=== PATIENT | male | born 1935 | race Caucasian/White ===

== ENCOUNTER 2023-02-02 18:29 | Inpatient (IN) | payer MEDICARE, MEDICAID ==
[~2023-02-02] VITALS: Ht 177.8 cm; Wt 81.8 kg
[2023-02-02] MEDS ORDERED: acetaminophen 325mg tablet PO ONE (18:45)
[2023-02-02] MEDS ORDERED: ibuprofen 200mg tablet PO ONE (19:15)
[2023-02-02] MEDS ORDERED: normal saline 1000ml 1,000 ML IV ONE (22:45)
[2023-02-02 23:41] LABS: BASOPHILS % (AUTO) 0.4 % (0-1); EOSINOPHILS % (AUTO) 0.2 % (0-6); HEMATOCRIT 39.2 % (42.0-52.0); LYMPHOCYTES # (AUTO) 0.7 X10'3 (1.1-4.8); LYMPHOCYTES % (AUTO) 9.1 % (21-51); MEAN CORPUSCULAR HEMOGLOBIN 30.8 PG (27.0-31.0); MEAN CORPUSCULAR HGB CONC 33.1 g/dL (33.0-36.5); MEAN PLATELET VOLUME 9.5 FL (7.4-10.4); MONOCYTES # (AUTO) 1.4 X10'3 (0-0.9); NEUTROPHILS # (AUTO) 5.5 X10'3 (1.8-7.7); NEUTROPHILS % (AUTO) 72.3 % (42-75); PLATELET COUNT 144 X10'3 (140-440); RED BLOOD COUNT 4.22 X10'6 (4.70-6.10); RED CELL DISTRIBUTION WIDTH 17.6 % (11.5-14.5); WHITE BLOOD COUNT 7.6 X10'3 (4.5-11.0)
[2023-02-02 23:52] LABS: ALANINE AMINOTRANSFERASE 25 U/L (12-78); ALBUMIN 3.4 G/DL (3.4-5.0); ALBUMIN/GLOBULIN RATIO 0.9 (1.1-1.5); ALKALINE PHOSPHATASE 84 IU/L (46-116); ANION GAP 10 (8-16); ASPARTATE AMINO TRANSFERASE 25 U/L (10-37); BILIRUBIN,TOTAL 0.6 MG/DL (0.1-1.0); BLOOD UREA NITROGEN 23 MG/DL (7-18); BUN/CREATININE RATIO 15.1 (10.0-20.0); CHLORIDE 103 MMOL/L (99-107); CREATININE 1.52 MG/DL (0.60-1.10); GLUCOSE 143 MG/DL (70-104); POTASSIUM 3.9 MMOL/L (3.5-5.1); SODIUM 138 MMOL/L (135-145); TOTAL CARBON DIOXIDE 24.7 MMOL/L (24-32); TOTAL PROTEIN 7.4 G/DL (6.4-8.2); eCRCL 37 ML/MIN; eGFR 44 ML/MIN
[2023-02-02 23:54] LABS: MAGNESIUM 1.9 MG/DL (1.5-2.4)
[2023-02-03] VITALS (7 sets, daily range): BP systolic 132–153; BP diastolic 53–61; PULSE 57–77; RESP 16–20; TEMP 97.7–98.3; O2SAT 94–98
[2023-02-03 00:30] LABS: ANISOCYTOSIS 1+; PLATELET ESTIMATE NORMAL; TOTAL CELLS COUNTED 100
[2023-02-03 00:34] LABS: ELLIPTOCYTES 1+; POIKILOCYTOSIS FEW
[2023-02-03 01:14] LABS: PRO BRAIN NATRIURETIC PEPTIDE 1052 PG/ML (0-450)
[2023-02-03] MEDS ORDERED: potassium Cl 40MEQ/1/2NS 520ml 520 ML IV PRN (01:50)
[2023-02-03] MEDS ORDERED: mag hydrox/Alum hydrox/simeth 30ml oral suspension PO PRN (01:50)
[2023-02-03] MEDS ORDERED: acetaminophen 325mg tablet PO PRN (01:50)
[2023-02-03] MEDS ORDERED: magnesium hydroxide 30ml (MOM) UD suspension PO PRN (01:50)
[2023-02-03] MEDS ORDERED: magnesium 2GM in 50ml NS 50 ML IV PRN (01:50)
[2023-02-03] MEDS ORDERED: potassium Cl 20 mEq SR tablet PO PRN ×2 (01:50)
[2023-02-03] MEDS ORDERED: magnesium Cl slow-release 64mg tablet PO PRN (01:50)
[2023-02-03] MEDS ORDERED: magnesium 4gm in 100ml NS 100 ML IV PRN (01:50)
[2023-02-03] MEDS ORDERED: ondansetron/PF 4mg/2ml inj IV PRN (01:50)
[2023-02-03] MEDS ORDERED: ipratropium/albuterol 3ml nebule NEB PRN (01:50)
[2023-02-03] MEDS ORDERED: HYDROcodone/acetaminophen 10/325mg tab PO PRN (01:50)
[2023-02-03] MEDS ORDERED: HYDROcodone/acetaminophen 5mg/325mg tablet PO PRN (01:50)
[2023-02-03] MEDS ORDERED: REMDESIVIR INJ 200 MG in normal saline 100ml IV soln 100 ML IV ONE (01:55)
[2023-02-03] MEDS ORDERED: fentaNYL/PF 50MCG/1 ML 2ML syringe IV ONE (04:55)
[2023-02-03 06:59] LABS: UA COLLECTION TYPE CLN CATCH MIDSTREAM
[2023-02-03 07:00] LABS: COLOR,URINE YELLOW (Yellow)
[2023-02-03 07:01] LABS: BILIRUBIN,URINE NEGATIVE (Neg); CLARITY,URINE TURBID (Clear); GLUCOSE, URINE NEGATIVE (Neg); KETONES,URINE NEGATIVE (Neg); NITRITES, URINE POSITIVE (Neg); OCCULT BLOOD,URINE MODERATE (Neg); PROTEIN,URINE 100 mg/dl (Neg)
[2023-02-03 07:02] LABS: BACTERIA,URINE 2+ /HPF (Neg); LEUKOCYTE ESTERASE ,URINE LARGE (Neg); MUCUS STRANDS MODERATE /LPF (Neg); SQUAMOUS EPITHELIAL CELL,UR MODERATE /LPF (FEW); UROBILINOGEN,URINE 0.2 E.U/dL (0.2-1.0); WBC CLUMPS,URINE MODERATE /HPF (NEGATIVE); WBC,URINE TNTC /HPF (0-4)
[2023-02-03] MEDS: K and/or MAG REPLACEMENT MC SCH ×2 (07:30→20:00)
[2023-02-03] MEDS: azithromycin/NS 500mg/250ml 250 ML IV SCH (07:42)
[2023-02-03] MEDS: methylPREDNISolone sod succ 125mg/2ml vial IV SCH ×2 (07:43→17:27)
[2023-02-03] MEDS: docusate sod 100mg capsule PO SCH ×2 (07:45→21:12)
[2023-02-03] MEDS: enoxaparin 40mg/0.4ml syringe SUBCUT SCH (07:46)
[2023-02-03] MEDS ORDERED: REMDESIVIR INJ 100 MG in normal saline 100ml IV soln 100 ML IV SCH (08:00)
[2023-02-03 09:07] LABS: POTASSIUM 3.4 MMOL/L (3.5-5.1)
[2023-02-03] MEDS ORDERED: OXYB5TAB17 PO (13:02)
[2023-02-03] MEDS ORDERED: ATOR-2 PO (13:02)
[2023-02-03] MEDS ORDERED: CARV6.253 PO (13:02)
[2023-02-03] MEDS ORDERED: CLOP75TA34 PO (13:02)
[2023-02-03] MEDS ORDERED: CYAN250010 PO (13:02)
[2023-02-03] MEDS ORDERED: URSO300C2 PO (13:02)
[2023-02-03] MEDS ORDERED: FLO0.4C (13:02)
[2023-02-03] MEDS ORDERED: LOSA100T58 PO (13:02)
[2023-02-03] MEDS ORDERED: AMLO5TAB16 PO (13:02)
[2023-02-03] MEDS ORDERED: CYAN50009 PO (13:02)
[2023-02-03] MEDS ORDERED: LEVO25TA7 PO (13:02)
[2023-02-03] MEDS ORDERED: ALLO300T8 PO (13:02)
[2023-02-03] MEDS ORDERED: CHOL100046 PO (13:03)
[2023-02-03] MEDS ORDERED: MELA5TAB12 PO (13:04)
[2023-02-03] MEDS ORDERED: DOCU-148 PO (13:05)
[2023-02-03] MEDS ORDERED: PERFLUTREN PROTEIN-A MICROSPHR (Optison) 0.22 MG/ML 3ML VIAL IV ONE (17:35)
[2023-02-04] MEDS: methylPREDNISolone sod succ 125mg/2ml vial IV SCH ×3 (01:20→17:05)
[2023-02-04 05:00] VITALS: BP 144/62; PULSE 65; RESP 20; TEMP 97.6; O2SAT 97
[2023-02-04 07:00] LABS: BASOPHILS % (AUTO) 0.2 % (0-1); EOSINOPHILS % (AUTO) 0 % (0-6); HEMATOCRIT 39.5 % (42.0-52.0); HEMOGLOBIN 12.7 g/dl (14.0-17.9); LYMPHOCYTES # (AUTO) 0.7 X10'3 (1.1-4.8); LYMPHOCYTES % (AUTO) 5.3 % (21-51); MEAN CORPUSCULAR HEMOGLOBIN 29.8 PG (27.0-31.0); MEAN CORPUSCULAR HGB CONC 32.2 g/dL (33.0-36.5); MEAN CORPUSCULAR VOLUME 92.5 FL (78-98); MEAN PLATELET VOLUME 9.2 FL (7.4-10.4); MONOCYTES # (AUTO) 0.5 X10'3 (0-0.9); MONOCYTES % (AUTO) 4.1 % (2-12); NEUTROPHILS % (AUTO) 90.4 % (42-75); PLATELET COUNT 144 X10'3 (140-440); RED BLOOD COUNT 4.27 X10'6 (4.70-6.10); RED CELL DISTRIBUTION WIDTH 17.9 % (11.5-14.5); WHITE BLOOD COUNT 13.3 X10'3 (4.5-11.0)
[2023-02-04 07:49] LABS: ALANINE AMINOTRANSFERASE 18 U/L (12-78); ALBUMIN 2.9 G/DL (3.4-5.0); ALBUMIN/GLOBULIN RATIO 0.6 (1.1-1.5); ALKALINE PHOSPHATASE 72 IU/L (46-116); ANION GAP 13 (8-16); ASPARTATE AMINO TRANSFERASE 25 U/L (10-37); BILIRUBIN,TOTAL 0.3 MG/DL (0.1-1.0); BLOOD UREA NITROGEN 23 MG/DL (7-18); BUN/CREATININE RATIO 24.2 (10.0-20.0); CALCIUM 8.9 MG/DL (8.5-10.1); CHLORIDE 107 MMOL/L (99-107); CREATININE 0.95 MG/DL (0.60-1.10); GLUCOSE 167 MG/DL (70-104); MAGNESIUM 1.9 MG/DL (1.5-2.4); SODIUM 142 MMOL/L (135-145); TOTAL CARBON DIOXIDE 22.4 MMOL/L (24-32); TOTAL PROTEIN 7.5 G/DL (6.4-8.2); eCRCL 59 ML/MIN; eGFR 75 ML/MIN
[2023-02-04 08:00] VITALS: RESP 16; O2SAT 97
[2023-02-04] MEDS: K and/or MAG REPLACEMENT MC SCH (08:00)
[2023-02-04] MEDS: azithromycin/NS 500mg/250ml 250 ML IV SCH (08:04)
[2023-02-04] MEDS: docusate sod 100mg capsule PO SCH (08:04)
[2023-02-04] MEDS: enoxaparin 40mg/0.4ml syringe SUBCUT SCH (08:05)
[2023-02-04 10:00] VITALS: BP 122/56; PULSE 66; RESP 15; TEMP 98.5; O2SAT 97
[2023-02-04] MEDS ORDERED: AZIT500T PO (12:04)
[2023-02-04] MEDS ORDERED: ALBU18HF2 IH (12:04)
[2023-02-04] MEDS ORDERED: METH4TAB81 PO (12:04)
[2023-02-04] MEDS ORDERED: ASPI81TA52 PO (12:06)
[2023-02-04 13:32] VITALS: PULSE 63; RESP 18; O2SAT 99
== END 2023-02-04 18:10 | disposition home health service (06) | DRG 177 ==
LOC: ER 18:30 → ED HOLD 02-03 01:54 → ORTHO 4S 02-03 14:00
PROVIDERS: ADMIT Internal Medicine; ATTEND Internal Medicine
DX: U07.1 COVID-19 (principal); I21.A1 Myocardial infarction type 2; J18.9 Pneumonia, unspecified organism; D72.829 Elevated white blood cell count, unspecified; F03.90 Unspecified dementia, unspecified severity, without behavioral disturbance, psychotic disturbance, mood disturbance, and anxiety; I25.10 Atherosclerotic heart disease of native coronary artery without angina pectoris; E78.5 Hyperlipidemia, unspecified; I10 Essential (primary) hypertension; T38.0X5A Adverse effect of glucocorticoids and synthetic analogues, initial encounter; Y92.238 Other place in hospital as the place of occurrence of the external cause; Z95.1 Presence of aortocoronary bypass graft; Z79.899 Other long term (current) drug therapy; Z79.02 Long term (current) use of antithrombotics/antiplatelets
CPT/HCPCS: 36415; 71045; 80053; 81001; 82948; 83605; 83735; 83880; 84132; 84145; 84484; 85007; 85025; 87040; 87088; 93005; 93306; 94760; 99285; G0378; J0456; J1650; J2930; J7030

== ENCOUNTER 2023-10-10 07:59 | Day surgery (SDC) | payer MEDICARE, MEDICAID ==
[2023-10-10] VITALS (9 sets, daily range): BP systolic 129–144; BP diastolic 59–79; PULSE 55–64; RESP 9–16; TEMP 97.1; O2SAT 96–100
[~2023-10-10] VITALS: Ht 172.7 cm; Wt 89.4 kg
[2023-10-10] MEDS: DOCUMENT DATE & TIME OF BETA-BLOCKER PO ONE (05:30)
[~2023-10-10 07:59] MED LIST: ALLO300T8 PO; AMLO5TAB16 PO; ATOR-2 PO; CARV6.253 PO; CHOL100046 PO; CLOP75TA34 PO; CYAN50009 PO; DOCU-148 PO; FLO0.4C; LEVO25TA7 PO; LOSA100T58 PO; MELA5TAB12 PO; OXYB5TAB21 PO; URSO300C2 PO
[2023-10-10] MEDS: ringers solution, lacted 1,000 ML IV SCH (08:43)
[2023-10-10] MEDS: famotidine 20mg tablet PO ONE (08:43)
[2023-10-10] MEDS ORDERED: morphine 2 MG/ML inj. syringe IV PRN (10:00)
[2023-10-10] MEDS ORDERED: ringers solution, lacted 1,000 ML IV SCH (10:00)
[2023-10-10] MEDS ORDERED: labetalol 20mg/4ml (5mg/ml) syringe IV PRN (10:00)
[2023-10-10] MEDS ORDERED: meperidine/PF 25mg/ml syringe IV PRN ×3 (10:00)
[2023-10-10] MEDS ORDERED: enalaprilat dihydrate 2.5mg/2ml vial IV PRN (10:00)
[2023-10-10] MEDS ORDERED: proCHLORperazine 10 MG/2 ml inj IV PRN (10:00)
[2023-10-10] MEDS ORDERED: ondansetron/PF 4mg/2ml inj IV PRN (10:00)
[2023-10-10] MEDS ORDERED: morphine 4 MG/ML inj SYRINge IV PRN (10:00)
[2023-10-10] MEDS ORDERED: LIDOcaine 1% (10mg/ml)w/preservative inj. 20ml MDV ONE (10:04)
[2023-10-10] MEDS ORDERED: LIDOcaine 1% W/epiNEPHrine 1:100,000 20ml vial ONE (10:26)
[2023-10-10] MEDS ORDERED: mupirocin 2% ointment 22GM ONE (10:37)
[2023-10-10] MEDS ORDERED: fentaNYL/PF 50MCG/1 ML 2ML syringe ONE (10:45)
[2023-10-10] MEDS ORDERED: sevoflurane 250ml liquid IH ONE (10:47)
[2023-10-10] MEDS ORDERED: midazolam 1 mg/ML 2ml injection ONE (10:47)
[2023-10-10] MEDS ORDERED: LIDOcaine 1%/PF 5ML 10 MG/ML VIAL ONE (10:59)
[2023-10-10] MEDS ORDERED: propofol inj 20 ML IV ONE (10:59)
[2023-10-10] MEDS: LIDOcaine 1% w/EPI 1:100,000 30ml vial (MDV) IJ ONE (11:29)
--- NOTE | 2023-10-10 12:02 | NUR ---
Received from OR via [facility], accompanied by Anesthesiologist DR. NG and report given by Anesthesiolgist. 20 TO RIGHT HAND WITH LR INFUSING PER MD ORDERS. NONVERBAL 0/10 PAIN. RIGHT NARE WITHOUT DRESSING. VSS. ORAL AIRWAY IN PLACE WITH PATIENT ON 8L MASK.
[2023-10-10] MEDS: oxymetazoline 15 ML nasal spray NS STA (12:37)
[2023-10-10] MEDS: salt irrigation nasal spray 45 ML SPRAY NS STA (12:38)
[2023-10-10] MEDS: mupirocin 2% nasal ointment 1gm UD NS STA (12:38)
--- NOTE | 2023-10-10 13:22 | NUR ---
PATIENT MEETS DISCHARGE CRITERIA FROM RECOVERY. DENIES PAIN. VSS ON RA. RIGHT NARE WITHOUT DRESSING. RIGHT HAND PIV DC'D WITHOUT COMPLICATIONS. DISCHARGE INSTRUCTIONS REVIEWED WITH PATIENT'S DAUGHTER, EDILMA. PATIENT ASSISTED TO DRESS, AMBULATED TO WHEELCHAIR. WHEELED DOWN TO PRIVATE VEHICLE WHERE DAUGHTER GAVE TRANSPORT HOME WITH ALL BELONGINGS.
== END 2023-10-10 13:22 | disposition home or self-care (01) ==
LOC: PAS 07:59
PROVIDERS: ATTEND Otolaryngology
DX: J34.89 Other specified disorders of nose and nasal sinuses (principal); L83 Acanthosis nigricans; L85.9 Epidermal thickening, unspecified; I10 Essential (primary) hypertension; I25.119 Atherosclerotic heart disease of native coronary artery with unspecified angina pectoris; E11.42 Type 2 diabetes mellitus with diabetic polyneuropathy; E03.9 Hypothyroidism, unspecified; I48.91 Unspecified atrial fibrillation; M10.9 Gout, unspecified; I25.2 Old myocardial infarction; Z86.73 Personal history of transient ischemic attack (TIA), and cerebral infarction without residual deficits; Z85.828 Personal history of other malignant neoplasm of skin; Z95.1 Presence of aortocoronary bypass graft
CPT/HCPCS: 14060; 30118; 82948; A4618; A6402; A7000; J1100; J2250; J2405; J2704; J3010; J3490; J7030; J7120; Z7506; Z7508; Z7512; Z7610; 88305; A6449

== ENCOUNTER 2024-06-19 13:01 | Inpatient (IN) | payer MEDICARE, MEDICAID ==
[~2024-06-19] VITALS: Ht 172.7 cm; Wt 82.0 kg
[~2024-06-19 13:01] MED LIST changes: -FLO0.4C; +TAMS-55
--- NOTE | 2024-06-19 13:33 | RADIOLOGY REPORT ---
CT CT HEAD Indication: N EXAM DATE: 06/19/2024 01:13 PM COMPARISON: None TECHNIQUE: CT of the head without intravenous contrast. RADIATION DOSE: CTDIvol: 34 mGy, DLP: 620 mGy*cm FINDINGS: There is no intracranial hemorrhage. There is no extra-axial fluid, mass, mass effect or midline shif t. The ventricles are midline and normal in size. Basilar cisterns are patent. Moderate periventricul ar and subcortical white matter chronic microvascular ischemic changes. Old bilateral basal ganglia lacunar infarcts. Old left johnson radiata infarct. Mild global cerebral volume loss. The paranasal sinuses and mastoids are well-pneumatized. Imaged portion of the orbits are unremarkabl e. IMPRESSION: 1. No intracranial hemorrhage or mass effect. 2. Moderate chronic microvascular ischemic changes. Old bilateral infarcts.
--- NOTE | 2024-06-19 13:38 | RADIOLOGY REPORT ---
EXAM: CT CT CERVICAL SPINE HISTORY: Pain COMPARISON: None CTDIvol 25.6 mGy, DLP 62.4 mGy*cm. TECHNIQUE: Multiple axial CT images of the spine were obtained using bone algorithm. Axial and johnson l reformatting was done. Bone and soft tissue windows were reviewed. FINDINGS: No evidence of definite acute fracture, spinal dislocation, or significant appearing acute subluxatio n is seen. Multilevel degenerative changes of the spine. IMPRESSION: No definite CT evidence of acute fracture or dislocation of the bony cervical spine.
--- NOTE | 2024-06-19 14:02 | RADIOLOGY REPORT ---
CLINICAL INDICATION: n TECHNIQUE: 5 radiographic views of the pelvis and bilateral hips were obtained. Comparison: None FINDINGS/IMPRESSION: There is no evidence of acute fracture or dislocation. Vlfe-bq-dbyxyasg degenerative changes of bilateral hips. The alignment is anatomical. Phleboliths are noted within the left hemipelvis. Vascular calcification is noted.
[2024-06-19 14:15] LABS: BASOPHILS # (AUTO) 0.1 X10'3 (0-0.2); BASOPHILS % (AUTO) 0.8 % (0-1); EOSINOPHILS # (AUTO) 0.3 X10'3 (0-0.9); EOSINOPHILS % (AUTO) 4.5 % (0-6); HEMATOCRIT 38.2 % (42.0-52.0); HEMOGLOBIN 12.4 g/dl (14.0-17.9); MEAN CORPUSCULAR HEMOGLOBIN 29.9 PG (27.0-31.0); MEAN CORPUSCULAR HGB CONC 32.6 g/dL (33.0-36.5); MEAN CORPUSCULAR VOLUME 91.8 FL (78-98); MEAN PLATELET VOLUME 9.4 FL (7.4-10.4); MONOCYTES # (AUTO) 0.9 X10'3 (0-0.9); MONOCYTES % (AUTO) 11.8 % (2-12); NEUTROPHILS # (AUTO) 5.1 X10'3 (1.8-7.7); NEUTROPHILS % (AUTO) 69.9 % (42-75); PLATELET COUNT 194 X10'3 (140-440); RED BLOOD COUNT 4.16 X10'6 (4.70-6.10); WHITE BLOOD COUNT 7.4 X10'3 (4.5-11.0)
[2024-06-19 14:26] LABS: ALANINE AMINOTRANSFERASE 16 U/L (12-78); ALBUMIN 3.2 G/DL (3.4-5.0); ALKALINE PHOSPHATASE 116 IU/L (46-116); ANION GAP 8 (8-16); ASPARTATE AMINO TRANSFERASE 11 U/L (10-37); BILIRUBIN,TOTAL 0.6 MG/DL (0.1-1.0); BLOOD UREA NITROGEN 18 MG/DL (7-18); BUN/CREATININE RATIO 15.8 (10.0-20.0); CALCIUM 8.6 MG/DL (8.5-10.1); CHLORIDE 106 MMOL/L (99-107); CREATININE 1.14 MG/DL (0.60-1.10); GLUCOSE 125 MG/DL (70-104); POTASSIUM 3.9 MMOL/L (3.5-5.1); SODIUM 141 MMOL/L (135-145); TOTAL CARBON DIOXIDE 26.6 MMOL/L (24-32); TOTAL PROTEIN 6.5 G/DL (6.4-8.2); eCRCL 44 ML/MIN; eGFR 61 ML/MIN
--- NOTE | 2024-06-19 15:06 | Physician Documentation ---
History of Present Illness ~ Chief Complaint: Trauma Level 3 Stated Complaint: FALL Time Seen by MD: 13:26 Primary Medical Doctor: DR. SLADE HPI 89 year old male s/p ground level fall backward, struck head and R elbow, complaining of R hip pain but ambulatory, is on blood thinners. Denies LOC, fevers, N/V/D, cough. Tetanus within 5 years?: No Medication Reconciliation Allergies: Coded Allergies: No Known Allergies (Unverified , 06/19/24) Scheduled Allopurinol (Allopurinol), 1 TAB PO DAILY, (Reported) Amlodipine Besylate (Amlodipine Besylate), 1 TAB PO BID, (Reported) Atorvastatin Calcium (Atorvastatin Calcium), 1 TAB PO HS, (Reported) Cholecalciferol (Vitamin D3) (Vitamin D3), 25 CAP PO DAILY, (Reported) Clopidogrel Bisulfate (Clopidogrel), 1 TAB PO DAILY, (Reported) Cyanocobalamin (Vitamin B-12) (Vitamin B12), 1 TAB PO DAILY, (Reported) Glycopyrrolate/Formoterol Fum (Bevespi Aerosphere Inhaler), 2 PUFFS PO BID, (Reported) Levothyroxine Sodium (Levothyroxine Sodium), 1 TAB PO DAILY, (Reported) Losartan Potassium (Losartan Potassium), 1 TAB PO DAILY, (Reported) Melatonin (Melatonin), 1 TAB PO HS, (Reported) Oxybutynin Chloride (Oxybutynin Chloride), 1 TAB PO DAILY, (Reported) Ursodiol (Ursodiol), 1 CAP PO HS, (Reported) Scheduled PRN Docusate Sodium (Colace), 1 CAP PO for constipation, (Reported) Miscellaneous Medications Beclomethasone Dipropionate (Qvar Redihaler), (Reported) Tamsulosin Hcl* (Flomax*), (Reported) Discontinued Medications Carvedilol (Carvedilol), 0.5 TAB PO BID, (Reported) Past Medical History Past Medical History: Dementia, *CARDIOVASCULAR*, Coronary Artery Disease Past Surgical History: coronary bypass surgery, other Drug Use: none Lives with: Family Lives In: Home Review of Systems All Other Systems at this time: Reviewed and Negative Physical Exam Vital Signs: RN Vital Signs have been reviewed: Yes, Temperature: 98.2, Source: Oral, Heart Rate: 52, Respiratory Rate: 16, BP: 138/59, Pulse Oximetry: 98, We ight: 82.000 Oxygen Flow Rate: 0 Physical Exam HEENT: PERRL, moist oral mucosa, EOMI Pulmonary: No respiratory distress CTAB Cardiac: RRR, no murmur, rub or gallop MSK: no deformity Skin: w/d/i, no rash Neuro: alert, nonfocal Psych: normal affect Progress Results/Orders Results/Orders Orders - TERRENCE JO MD Hip,Bi,Cmplt(Ap Pelvis) (06/19/24 13:26) Ct Pelvis (06/19/24 15:57) Page Hospitalist (06/19/24 ) Completed Orders - TERRENCE JO MD Hip,Bi,Cmplt(Ap Pelvis) (06/19/24 13:26) Cbc/Diff (06/19/24 13:27) CMP (06/19/24 13:27) Urinalysis, Cult If Indicated (06/19/24 13:27) Ct Pelvis (06/19/24 15:57) Vital Signs 06/19/24 06/19/24 06/19/24 06/19/24 13:04 13:50 14:00 14:14 Temp 97.4 98.2 Pulse 63 58 Resp 18 22 18 B/P (MAP) 147/63 142/64 (90) Pulse Ox 97 99 O2 Delivery Room Air O2 Flow Rate 0 0 06/19/24 06/19/24 06/19/24 06/19/24 14:30 14:57 15:26 16:00 Pulse 52 52 54 55 Resp 18 16 20 15 B/P (MAP) 130/58 (82) 138/59 (85) 132/59 132/59 (83) Pulse Ox 98 98 98 97 O2 Flow Rate 0 0 0 06/19/24 06/19/24 06/19/24 17:00 17:26 18:35 Pulse 51 52 Resp 15 15 17 B/P (MAP) 131/61 (84) Pulse Ox 99 O2 Flow Rate 0 Laboratory Tests Test 06/19/24 13:52 06/19/24 15:30 White Blood Count 7.4 Red Blood Count 4.16 L Hemoglobin 12.4 L Hematocrit 38.2 L Mean Corpuscular Volume 91.8 Mean Corpuscular Hemoglobin 29.9 Mean Corpuscular Hemoglobin Concent 32.6 L Red Cell Distribution Width 17.0 H Platelet Count 194 Mean Platelet Volume 9.4 Neutrophils (%) (Auto) 69.9 Lymphocytes (%) (Auto) 13.0 L Monocytes (%) (Auto) 11.8 Eosinophils (%) (Auto) 4.5 Basophils (%) (Auto) 0.8 Neutrophils # (Auto) 5.1 Lymphocytes # (Auto) 1.0 L Monocytes # (Auto) 0.9 Eosinophils # (Auto) 0.3 Basophils # (Auto) 0.1 CBC Comment Sodium Level 141 Potassium Level 3.9 Chloride Level 106 Carbon Dioxide Level 26.6 Anion Gap 8 Blood Urea Nitrogen 18 Creatinine 1.14 H Estimated GFR/1.73 m2 61 BUN/Creatinine Ratio 15.8 Glucose Level 125 H Calcium Level 8.6 Total Bilirubin 0.6 Aspartate Amino Transf (AST/SGOT) 11 Alanine Aminotransferase (ALT/SGPT) 16 Alkaline Phosphatase 116 Total Protein 6.5 Albumin 3.2 L Globulin 3.3 Albumin/Globulin Ratio 1.0 L Chemistry Comments Urine Specimen Description Cln catch midstream Urine Color Yellow Urine Clarity Clear Urine pH 6.0 Urine Specific Donnelly 1.020 Urine Protein Negative Urine Glucose (UA) Negative Urine Ketones Negative Urine Occult Blood Negative Urine Nitrite Negative Urine Bilirubin Negative Urine Urobilinogen 0.2 Urine Leukocyte Esterase Negative Urine Culture Indicated Not ind Volume Urine Centrifuged 10 ml Urine Comment EKG/XRAY/CT/US/VASC/MRI Chest X-Ray : Interpreted By: self Views: 1 VIEW Indication: trauma Lungs: normal Mediastinum: normal Ribs/Bones: normal Abdomen: normal Impression: no acute disease Bone/Soft Tissue X-Ray (Ext.) : Interpreted By: self Views: 1 VIEW Location: pelvis Impression: normal Medical Decision Making Findings 89 year old male with ground level fall and on blood thinners. Exam and vitals unremarkable. CT head unremarkable, labs and xray pelvis unremarkable. Planned to road test for disposition and patient was in too much pain to walk. Patient's daughter appeared very upset that we were attempting to road test the patient and considering discharge. Will add on CT pelvis for occult fracture and sign out to oncoming ER physician for disposition. Differential Dx:Considerations: Include: Closed head injury, Fracture(s), Pneumothorax, Cerebral contusion, Urological injury, Vascular injury, Contusion(s), Foreign body(s), Hematoma(s) Additional Comments Ddx includes intracranial mass, shift, bleed Departure Disposition: 30 STILL A PATIENT Impression: Primary Impression: Ground-level fall Additional Impression: Skin tear Condition: Stable Discharge Instructions: Fall Prevention in the Home, Adult Referrals: NO PRIMARY CARE PROVIDER (PCP) Education Educated: Patient, Family Educated regarding: diagnosis, treatment, prognosis, need for follow up Signature Scribe Signature: . Attestation: . TERRENCE JO MD June 19, 2024 15:06
[2024-06-19 15:45] LABS: BILIRUBIN,URINE NEGATIVE (Neg); CLARITY,URINE CLEAR (Clear); COLOR,URINE YELLOW (Yellow); GLUCOSE, URINE NEGATIVE (Neg); KETONES,URINE NEGATIVE (Neg); LEUKOCYTE ESTERASE ,URINE NEGATIVE (Neg); NITRITES, URINE NEGATIVE (Neg); OCCULT BLOOD,URINE NEGATIVE (Neg); PROTEIN,URINE NEGATIVE (Neg); UROBILINOGEN,URINE 0.2 E.U/dL (0.2-1.0)
[2024-06-19 15:57] LABS: UA COLLECTION TYPE CLN CATCH MIDSTREAM
[2024-06-19] MEDS ORDERED: GLYC10.7 PO (16:04)
[2024-06-19] MEDS ORDERED: BECL10.6 (16:04)
--- NOTE | 2024-06-19 16:25 | RADIOLOGY REPORT ---
Indication: unable to ambulate after fall Technique: CT axial images of the abdomen and pelvis are obtained without contrast. Coronal and sagit mary reformats were obtained. Radiation Dose Information: CTDI volume is 28 mGy. Dose-length product is 867 mGy*cm Comparison: None FINDINGS /impression: Limited evaluation without contrast. Ipbj-rk-jqbyfspn bilateral sacroiliac degenerative joint disease. Bfhn-gp-cyrrfvtz degenerative nath es of the bilateral hips. Age indeterminatem fracture of the coccyx with 8 mm cortical offset. Correlate with point tenderness /pain symptoms. Atherosclerotic disease. Colonic diverticular disease. Bladder distention. No free pelvic fluid. No inguinal lymphadenopathy. Normal appendix.
[2024-06-19] MEDS ORDERED: magnesium sulf-water 2g/50mL 50 ML IV PRN (18:00)
[2024-06-19] MEDS ORDERED: ondansetron 4mg rapidly disintigrating tab PO PRN (18:00)
[2024-06-19] MEDS ORDERED: magnesium sulf-water 4G/100mL 100 ML IV PRN (18:00)
[2024-06-19] MEDS ORDERED: HYDROcodone/acetaminophen 5mg/325mg tablet PO PRN (18:00)
[2024-06-19] MEDS ORDERED: mag hydrox/Alum hydrox/simeth 30ml oral suspension PO PRN (18:00)
[2024-06-19] MEDS ORDERED: HYDROcodone/acetaminophen 10/325mg tab PO PRN (18:00)
[2024-06-19] MEDS ORDERED: potassium Cl 20 mEq SR tablet PO PRN ×2 (18:00)
[2024-06-19] MEDS ORDERED: potassium Cl 40MEQ/1/2NS 520ml 520 ML IV PRN (18:00)
[2024-06-19] MEDS ORDERED: magnesium hydroxide 30ml (MOM) UD suspension PO PRN (18:00)
[2024-06-19] MEDS ORDERED: acetaminophen 325mg tablet PO PRN ×2 (18:00)
--- NOTE | 2024-06-19 19:06 | HISTORY AND PHYSICAL ---
History & Physical Providers to CC ~ History of Present Illness Reason for Admit\Complaint: fall, syncope History of Present Illness García Younger is a 89-year-old male with past medical history of CABG in 2019, COPD, hypertension, hyperlipidemia, NIDDM, CVA x3 in 2019, afib, s/p ablation who presented to the ED after a ground level fall backward striking head and right elbow today. Patient is a poor historian, hence, most history was taken from his POA daughter Elizabeth Younger. A fall was not witnessed by the daughter but patient was found on the ground immediately after a fall per daughter. Patient denies prior cardiac arrhythmia, DVT/PE, or GIB. Patient denies loss of consciousness, chest pain, palpitations, shortness of breath, abdominal pain, n/v/d. In ED, patient is in severe pain and is unable to ambulate. Patient is to be admitted for further workups, treatment, PT evaluation. Allergies: Coded Allergies: No Known Allergies (Unverified , 06/19/24) Home Medications Home Medications Active Reported Bevespi Aerosphere Inhaler (Glycopyrrolate/Formoterol Fum) 9 Mcg-4.8 Mcg Hfa.aer.ad 2 Puffs PO BID Qvar Redihaler (Beclomethasone Dipropionate) 40 Mcg/Actuation Hfa.aeroba Colace (Docusate Sodium) 100 Mg Capsule 1 Cap PO PRN Melatonin 5 Mg Tab.rapdis 1 Tab PO HS Vitamin D3 (Cholecalciferol (Vitamin D3)) 25 Mcg (1000 Unit) Capsule 25 Cap PO DAILY Vitamin B12 (Cyanocobalamin (Vitamin B-12)) 5,000 Mcg Tab.rapdis 1 Tab PO DAILY Clopidogrel (Clopidogrel Bisulfate) 75 Mg Tablet 1 Tab PO DAILY Flomax* (Tamsulosin HCl) 0.4 Mg Cap.sr.24h Carvedilol 6.25 Mg Tablet 0.5 Tab PO BID Oxybutynin Chloride 5 Mg Tablet 1 Tab PO DAILY Atorvastatin Calcium 80 Mg Tablet 1 Tab PO HS Allopurinol 300 Mg Tablet 1 Tab PO DAILY Amlodipine Besylate 5 Mg Tablet 1 Tab PO BID Losartan Potassium 100 Mg Tablet 1 Tab PO DAILY Ursodiol 300 Mg Capsule 1 Cap PO HS Levothyroxine Sodium 25 Mcg Tablet 1 Tab PO DAILY Past Surgical History Surgical History Comment CABG in 2019 Past Social History Social History Comment Alcohol: Denies Tobacco: Denies Illicit drug use: Denies Living situation: Lives at home with daughter JACOBO CENTENO Other than positives in HPI, all 14 review of systems are negative Exam Vitals: Vital Signs Date Time Temp Pulse Resp B/P (MAP) Pulse Ox O2 Delivery O2 Flow Rate FiO2 06/19/24 17:26 52 15 06/19/24 17:00 131/61 (84) 99 0 06/19/24 14:00 98.2 06/19/24 13:50 Room Air General: A&Ox2, NAD HEENT: Normocephalic, PERRLA Neck: Supple, trachea midline, no JVD Chest: Clear to auscultation bilaterally Cardiovascular: RRR, S1&S2 Abdomen: Soft and nontender Extremities: No cyanosis/clubbing/or edema Central Nervous System: No focal deficits Musculoskeletal: No paraspinal muscle tenderness, no muscle spasm Skin: laceration right elbow Diagnostic Data Last Recorded Lab Results: 06/19/24 1352 06/19/24 1352 Additional Plan # Syncope # Fall, unspecified # 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) # Hx CVA x3 # HTN -UA negative, CT head negative, CT c-spine negative fracture, hip/pelvis xray negative fracture, CT pelvis age indeterminate fracture of coccyx 8mm and bladder distention -statin, aspirin, tele, post-void bladder scan -MRI head, carotid US, TTE, troponin, EKG # Fall # Fracture, cocyxx # Laceration, RUE -CT pelvis age indeterminate fracture of coccyx 8mm -PT eval, supportive care, fall precaution, wound care # EDWARD vs CKD- to rule out # Normocytic anemia -follow lab # NIDDM -follow A1c, lipid panel DVT/VTE Prophylaxis: heparin Code Status: Full code I spent a total of 30 minutes discussing Advanced Care Planning measures with the patient's POA alberto Younger at bedside. Advance care planning: Discussed with patient and POA the importance of advance care planning in case of emergent situation. We discussed various resuscitative measures/ ACP with the patient at the time of admission. Patient's POA voiced understanding and patient has decided on a full code status. Date of Service: June 19, 2024 Billing Provider: NATALIIA RODRIGUEZP Common Visit Codes: 14611-[id number] INP/OBS CARE (HIGH) Secondary Visit Codes: [id number] CARE PLAN 30 MINUTES NATALIIA RODRIGUEZ BLOCK CUBER June 19, 2024 19:06
[2024-06-19] MEDS: LidoCAINE 2% Topical Jelly 11mL syringe (UROJET) TOP ONE (19:30)
[2024-06-19] MEDS: aspirin 81mg, enteric-coated 1 TAB TABLET.DR PO ONE (19:40)
[2024-06-19] MEDS: docusate sod 100mg capsule PO SCH (19:40)
[2024-06-19] MEDS: normal saline 1000ml 1,000 ML IV SCH (19:40)
[2024-06-19] MEDS: PERFLUTREN PROTEIN-A MICROSPHR (Optison) 0.22 MG/ML 3ML VIAL IV ONE (19:41)
[2024-06-19] MEDS: K and/or MAG REPLACEMENT MC SCH (20:00)
[2024-06-19] MEDS: heparin, porcine 5000 units/ml vial SQ SCH (21:36)
[2024-06-19] MEDS: atorvastatin 20mg tablet PO SCH (21:37)
[2024-06-19 22:15] VITALS: BP_SYST 141; BP_SYST 146; BP_SYST 151; BP_DIAS 62; BP_DIAS 78; BP_DIAS 88; PULSE 67; PULSE 69; PULSE 78; RESP 18; TEMP 97.9; O2SAT 97
[2024-06-20] VITALS (7 sets, daily range): BP systolic 124–149; BP diastolic 49–64; PULSE 55–81; RESP 14–17; TEMP 97.7–98.3; O2SAT 97–98
[2024-06-20 06:22] LABS: BASOPHILS % (AUTO) 0.7 % (0-1); EOSINOPHILS # (AUTO) 0.4 X10'3 (0-0.9); EOSINOPHILS % (AUTO) 5.4 % (0-6); HEMATOCRIT 38.9 % (42.0-52.0); HEMOGLOBIN 12.9 g/dl (14.0-17.9); LYMPHOCYTES # (AUTO) 0.9 X10'3 (1.1-4.8); LYMPHOCYTES % (AUTO) 14.2 % (21-51); MEAN CORPUSCULAR HEMOGLOBIN 30.5 PG (27.0-31.0); MEAN CORPUSCULAR HGB CONC 33.2 g/dL (33.0-36.5); MEAN CORPUSCULAR VOLUME 91.7 FL (78-98); MEAN PLATELET VOLUME 9.6 FL (7.4-10.4); MONOCYTES # (AUTO) 0.9 X10'3 (0-0.9); MONOCYTES % (AUTO) 12.8 % (2-12); NEUTROPHILS # (AUTO) 4.4 X10'3 (1.8-7.7); NEUTROPHILS % (AUTO) 66.9 % (42-75); PLATELET COUNT 171 X10'3 (140-440); RED BLOOD COUNT 4.24 X10'6 (4.70-6.10); RED CELL DISTRIBUTION WIDTH 17.3 % (11.5-14.5); WHITE BLOOD COUNT 6.7 X10'3 (4.5-11.0)
[2024-06-20 06:41] LABS: ALANINE AMINOTRANSFERASE 18 U/L (12-78); ALBUMIN/GLOBULIN RATIO 0.9 (1.1-1.5); ALKALINE PHOSPHATASE 114 IU/L (46-116); ANION GAP 11 (8-16); ASPARTATE AMINO TRANSFERASE 11 U/L (10-37); BILIRUBIN,TOTAL 0.5 MG/DL (0.1-1.0); BLOOD UREA NITROGEN 14 MG/DL (7-18); BUN/CREATININE RATIO 14.7 (10.0-20.0); CALCIUM 8.2 MG/DL (8.5-10.1); CHLORIDE 108 MMOL/L (99-107); CHOLESTEROL 77 MG/DL (0-200); CREATININE 0.95 MG/DL (0.60-1.10); GLUCOSE 85 MG/DL (70-104); HDL CHOLESTEROL 26 MG/DL (35-60); LDL CHOLESTEROL 39 MG/DL (50-100); MAGNESIUM 1.7 MG/DL (1.5-2.4); POTASSIUM 3.8 MMOL/L (3.5-5.1); SODIUM 143 MMOL/L (135-145); TOTAL CARBON DIOXIDE 24.3 MMOL/L (24-32); TOTAL PROTEIN 6.2 G/DL (6.4-8.2); TRIGLYCERIDES 97 MG/DL (20-135); eCRCL 53 ML/MIN; eGFR 75 ML/MIN
--- NOTE | 2024-06-20 06:48 | ELECTROCARDIOGRAPH REPORT ---
[facility] Test Date: 2024-06-20 Test Time: 02:08:30 Pat Name: KARON BAEZA Department: ORTHO Room: ORTHO [facility] Gender: M [employer] Architect: : [id number] Requested By: NATALIIA RODRIGUEZ Order Number: [id number] Reading MD: Dr. JASPAL Escamilla Measurements Intervals Haiku Rate: 59 P: 28 LA: 245 QRS: -7 QRSD: 140 T: 6 QT: 422 QTc: 418 Interpretive Statements Sinus bradycardia Prolonged LA interval Right bundle branch block Inferior infarct, old Anteroseptal infarct, age indeterminate Electronically Signed On 06-22-2024 15:05:[address] JASPAL Escamilla Please click the below link to view image of tracing.
[2024-06-20 07:14] LABS: HEMOGLOBIN A1C 6.2 % (4.5-6.2)
[2024-06-20] MEDS: aspirin 81mg, enteric-coated 1 TAB TABLET.DR PO SCH (08:00)
--- NOTE | 2024-06-20 10:16 | PROGRESS NOTE ---
Daily Progress Note Providers to CC ~ Antibiotic Timeout Antibiotic Ordered?: No Subjective No acute events overnight. Patient examined at bedside. No new complaints, not in acute distress. Patient denies chest pain, sob, palpitations, abdominal pain, n/v/d. Vss, labs unremarkable. Orthostatic negative. Patient reports pain in buttocks but manageable and moves around freely without experiencing significant pain. Troponin negative, TTE shows normal overall systolic function with LVEF of 65-70% RVSP 17 mmHg without significant VHD. Tele sinus in 60s. Carotid US shows no hemodynamically significant stenosis by velocity criteria. However, there is inadequate evaluation of the proximal right ICA secondary to extensive atherosclerotic plaque. CTA head/neck shows severe stenosis of right proximal ICA 95%, high-grade stenosis at right vertebral artery >90%, b/l cavernous ICA 60-80%. MRI head unremarkable. Teleneurology consulted. Objective Vital Signs Date Time Temp Pulse Resp B/P (MAP) Pulse Ox O2 Delivery O2 Flow Rate FiO2 06/20/24 06:00 98.3 67 14 143/60 (87) 98 Room Air 06/19/24 21:42 0 Result Diagram: 06/20/2452606/20/24526 Physical Exam General: A&Ox2, NAD HEENT: Normocephalic, PERRLA Neck: Supple, trachea midline, no JVD Chest: Clear to auscultation bilaterally Cardiovascular: RRR, S1&S2 Abdomen: Soft and nontender Extremities: No cyanosis/clubbing/or edema Central Nervous System: No focal deficits Musculoskeletal: No paraspinal muscle tenderness, no muscle spasm Skin: laceration right elbow Problem\Assessment\Plan # Syncope 2/2 ICA stenosis # Fall, unspecified # 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 Tele sinus in 60s -carotid US shows no hemodynamically significant stenosis by velocity criteria. However, there is inadequate evaluation of the proximal right ICA secondary to extensive atherosclerotic plaque; CTA head/neck shows severe stenosis of right proximal ICA 95%, high-grade stenosis at right vertebral artery >90%, b/l cavernous ICA 60-80%. MRI head unremarkable. Teleneurology consulted. -continue high-intensity statin and home Plavix # Fall # Fracture, cocyxx # Laceration, RUE -CT pelvis age indeterminate fracture of coccyx 8mm -PT eval, supportive care, fall precaution, wound care # EDWARD vs CKD- to rule out # Normocytic anemia -follow lab # NIDDM -A1c 6.2%, LDL 39; continue home statin and Plavix DVT/VTE Prophylaxis: heparin Code Status: Full code Date of Service: June 20, 2024 Billing Provider: NATALIIA RODRIGUEZ Common Visit Codes: [id number] INP/OBS CARE(HIGH) NATALIIA RODRIGUEZ June 20, 2024 10:16
--- NOTE | 2024-06-20 11:12 | VASCULAR REPORT ---
Indication: Syncope Technique: Real-time ultrasound images of the neck vessels with collado-scale, color and wave Doppler we re obtained. Comparison: None Findings: Moderate to severe atherosclerotic plaque bilaterally, oishd-qdbyopg-ofsb-left. The following peak systolic velocities were recorded in cm/sec: Right internal carotid: 77. However there is prominent atherosclerotic plaque in the very proximal r ight ICA limiting evaluation. Right common carotid: 66 Right external carotid: 118 Right internal/common carotid ratio: 1.2 Left internal carotid: 75 Left common carotid: 100 Left external carotid: 95 Left internal/common carotid ratio: 0.8 Right vertebral artery: Patent with normal antegrade direction of flow. Left vertebral artery: Patent with normal antegrade direction of flow. Impression: 1. No hemodynamically significant stenosis by velocity criteria. However there is inadequate evaluati on of the proximal right ICA secondary to extensive atherosclerotic plaque. Recommend CT angiogram o f the neck fully characterize as there suspected high-grade stenosis of the proximal right ICA. 2. Moderate severe bilateral atherosclerotic plaque.
[2024-06-20] MEDS ORDERED: iohexol 350MG/ML 100ml bottle IV ONE (14:30)
--- NOTE | 2024-06-20 15:08 | RADIOLOGY REPORT ---
EXAM: CT CTA NECK/HEAD DATE OF SERVICE: 06/20/2024 02:36 PM ORDERING PHYSICIAN: NATALIIA RODRIGUEZ REASON FOR EXAM: syncope, abnormal US carotid TECHNIQUE: CTA of the brain and neck was performed after the administration of contrast . Axial imag es of the head and neck are obtained. Coronal and sagittal images were then reformatted for review. M IP reformats were obtained and reviewed. COMPARISON: 06/19/2024 CT head an ultrasound FINDINGS: FINDINGS: The right common carotid artery demonstrates moderate calcification of the right carotid bulb. Right internal carotid artery demonstrates high-grade stenosis of the proximal right ICA, approximate ly 95% stenosis with eccentric mural wall thrombus and extensive atherosclerotic calcification diseas e. There is extensive calcification of the cavernous right ICA consistent with 60-80% stenosis. Right middle cerebral artery demonstrates no high-grade stenosis. The right anterior cerebral artery demonstrates no high-grade stenosis. The left common carotid artery demonstrates no high-grade stenosis. Dlpz-zq-skniqitt calcification of the left carotid bulb. Left internal carotid artery demonstrates extensive calcification of the cavernous left ICA with 60-8 0% stenosis The left middle cerebral artery demonstrates no high-grade stenosis. The left anterior cerebral artery demonstrates no high-grade stenosis. The right vertebral artery demonstrates high-grade stenosis at its origin, greater than 90% stenosis. There is focal high-grade stenosis of the V4 segment, 80 to 90% stenosis. The left vertebral artery demonstrates no high-grade stenosis. Basilar artery demonstrates no high-grade stenosis. The bilateral posterior cerebral arteries demonstrate no high-grade stenosis. Moderate cervical degenerative disc disease. Postsurgical changes bilateral orbits. Aortic atherosclerotic disease. Moderate chronic microvascular ischemic changes of the cerebral parenchyma. IMPRESSION: 1. 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 Recommend neurosurgical consultation for further evaluation. 2. High-grade stenosis at the origin of the right vertebral artery, greater 90% stenosis. Focal high- grade stenosis of the V4 segment right vertebral artery, 80-90% stenosis. 3. Bilateral cavernous internal carotid arteries demonstrate extensive calcification disease with 60- 80% stenoses.
--- NOTE | 2024-06-20 15:31 | RADIOLOGY REPORT ---
PROCEDURE: MR MRI HEAD INDICATION: syncope, hx cva EXAM DATE: 06/20/2024 02:03 PM COMPARISON: CT CT HEAD on DOS: 06/19/24 TECHNIQUE: MRI of the brain without intravenous contrast. Limited exam. Only diffusion-weighted lobo ges and axial and sagittal T1 weighted images obtained. FINDINGS: Diffusion weighted images of the brain demonstrate no evidence of acute infarction. There is no evidence of acute intracranial hemorrhage, extra-axial collection, mass effect, midline s hift, herniation or hydrocephalus. The ventricles, sulci and cisterns appear age appropriate. Old left basal ganglia infarct. Moderate changes of chronic microvascular ischemic disease. The major vascular flow voids are present. The visualized paranasal sinuses and mastoid air cells are clear. The surrounding soft tissues and o sseous structures are unremarkable. IMPRESSION: 1. Limited exam. No evidence of acute ischemia. Old left basal ganglia infarct. Moderate changes of c hronic microvascular ischemic disease. HS:Y
[2024-06-20] MEDS: normal saline 500ml IV soln 500 ML IV ONE (16:41)
--- NOTE | 2024-06-20 18:37 | BLUE [facility]Y NEURO CONSULT REPORT ---
[facility] Procedure Note [facility] Procedure Note Consult [facility] Note # Demographics Consult Type: General Neurology Patient Location: Inpatient First Name: García Last Name: Carisa Date of : 1935 Age: 89 Gender: Male Facility: [facility] [place] Time of Initial Page (): 06/20/2024 15:56 Time of Return Call (): 06/20/2024 15:56 # HPI Chief Complaint: - weakness (generalized) History: 89 y/o M presented with an unwitnessed fall. His daughter found him immediately after and there was no reported LOC. He fell backward and struck his head. He says he is ambulatory without the use of any assistive devices. He is a poor historian. He thinks he fell because he was trying to pivot and his R foot didn't want to turn, which happens from time to time. CTA head and neck 95% stenosis of proximal R ICA and high grade stenosis of R vert. 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 # Scores Time of exam and NIHSS (): 06/20/2024 17:12 Level of Consciousness 1a: [0] = Alert; keenly responsive LOC Questions 1b: [1] = Answers one correctly LOC Commands 1c: [0] = Performs both tasks correctly Best Gaze 2: [0] = Normal Visual 3: [0] = No visual loss Facial Palsy 4: [0] = Normal symmetrical movements Motor Arm Left 5a: [0] = No drift Motor Arm Right 5b: [0] = No drift Motor Leg Left 6a: [0] = No drift Motor Leg Right 6b: [0] = No drift Limb Ataxia 7: [0] = Absent Sensory 8: [0] = Normal Best Language 9: [0] = No aphasia Dysarthria 10: [0] = Normal Extinction and Inattention 11: [0] = No abnormality NIHSS Total: 1 # Exam SBP: 139 DBP: 49 # PMH-FH-SH Past Medical History: - hypertension - hyperlipidemia - stroke Medications: - lipid lowering agent - plavix pt was started on Aspirin in hospital but refused # Data CTA Head: as below CTA Neck: severe stenosis of R proximal ICA just beyond the carotid bulb, approximately 95% stenosis, high grade stenosis of the origin of the R vertebral artery, greater than 90% stenosis, focal high grade stenosis of R V4, b/l cavernous ICA demonstrate extensive calcification MRI: - no acute ischemia chronic L basal ganglia infarct # Assessment Impression: Fall-etiology may have been mechanical based on patients description, reviewed CTA findings, would check orthostatic vital signs and refer to Vascular Surgery, additionally can obtain a CT L spine to rule out any arthritic disease which may lead to LE weakness and falls, although on exam he has no weakness # Plan Labs: - B12 - hemoglobin A1c orthostatic vital signs Imaging: (urgency: routine): CT L spine without contrast Therapy/Evaluation: - PT/OT evaluation Medication: - clopidogrel (Plavix) 75 mg daily - start statin with goal of LDL < 70 Other: - If patient has any neurological deterioration please call me back immediately - telemetry monitoring - I have discussed my recommendations with the referring provider Additional Recommendations: Vascular Surgery consult Disposition: continue admission # Logistics Attestation of consult completion: The patient is located at: [facility] [place]. Facility staff participated in the visit. I performed this telemedicine visit from my offsite office utilizing interactive 2 way audio and visual telecommunication technology. Total time spent in telemedicine encounter: I spent 25 minutes reviewing clinical data and/or imaging, obtaining history, examining the patient, communicating with the onsite care team, and in preparation of this report. # Demographics First Name: García Last Name: Carisa Facility: [facility] [place] Electronically signed at 06/20/2024 18:37 ([place] Time) by Hernan Lazaro MD Neuro Consult Order placed for: Yes HERNAN LAZARO MD June 20, 2024 18:37
--- NOTE | 2024-06-20 20:14 | CARDIOLOGY REPORT ---
APPROVED REPORT EXAM: Comprehensive 2D, Doppler, and color-flow Echocardiogram. 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 144.8 cm/s AoV VTI 30.3 cm AO Peak GR. 8.4 mmHg AO Mean GR. 6 mmHg LVOT VTI 25.53 cm LVOT Peak Quintin. 111.9 cm/s OVIDIO(VTI)/BSA 2.47 cm2/m2 OVIDIO (VTI) 2.47 cm2 AI P 1/2 Time 724 ms Mitral Valve MV E Velocity 91.1 cm/s MV Peak Gr. 6 mmHg MV DECEL TIME 324 ms MV A Velocity 142.9 cm/s MV PHT 76 ms E/A Ratio 0.6 MVA (PHT) 2.89 cm2 MV BDpm324.7 cm/s TDI Lateral E' P. V7.56 cm/s E/Lateral E' 12.1 Tricuspid Valve TR P. Velocity 129 cm/s RAP ESTIMATE 10 mmHg TR Peak Gr. 7 mmHg RVSP 17 mmHg LEFT VENTRICLE The left ventricle is normal size with mild proximal septal thickening. Overall systolic function is normal. LVEF is 65-70%. RIGHT VENTRICLE Right ventricle is mild to moderately dilated with adequate function. ATRIA Left atrium is moderately dilated. AORTIC VALVE Bioprosthetic AVR appears well seated with normal function. Peak / mean gradients of 8 / 6 mmHG. Peak velocity is measured at 1.45 m/sec. Trace regurgitation. MITRAL VALVE Moderate mitral annular calcification without stenosis. Trace regurgitation. TRICUSPID VALVE The tricuspid valve is normal in structure with trace regurgitation. PULMONIC VALVE Pulmonic valve is grossly normal in structure with physiologic insufficiency. GREAT VESSELS The aortic root is normal in size. IVC is normal in size. PERICARDIUM Normal pericardium. No effusion. Other Information Study Quality: Fair due to body habitus. Conclusion The left ventricle is normal size with mild proximal septal thickening. Overall systolic function is normal. LVEF is 65-70%. Right ventricle is mild to moderately dilated with adequate function. Left atrium is moderately dilated. Bioprosthetic AVR appears well seated with normal function. Peak / mean gradients of 8 / 6 mmHG. Pe ak velocity is measured at 1.45 m/sec. Trace regurgitation. Moderate mitral annular calcification without stenosis. Trace regurgitation. The tricuspid valve is normal in structure with trace regurgitation. Normal pericardium. No effusion.
[2024-06-20] MEDS: atorvastatin 20mg tablet PO SCH (20:31)
[2024-06-21] VITALS (7 sets, daily range): BP systolic 133–153; BP diastolic 51–86; PULSE 57–78; RESP 15–18; TEMP 97.7–98; O2SAT 97–98
[2024-06-21 05:33] LABS: BASOPHILS # (AUTO) 0.1 X10'3 (0-0.2); BASOPHILS % (AUTO) 0.8 % (0-1); EOSINOPHILS # (AUTO) 0.4 X10'3 (0-0.9); EOSINOPHILS % (AUTO) 5.7 % (0-6); HEMATOCRIT 37.7 % (42.0-52.0); HEMOGLOBIN 12.5 g/dl (14.0-17.9); MEAN CORPUSCULAR HEMOGLOBIN 30.3 PG (27.0-31.0); MEAN CORPUSCULAR HGB CONC 33.1 g/dL (33.0-36.5); MEAN CORPUSCULAR VOLUME 91.6 FL (78-98); MEAN PLATELET VOLUME 9.3 FL (7.4-10.4); MONOCYTES # (AUTO) 0.9 X10'3 (0-0.9); MONOCYTES % (AUTO) 13.4 % (2-12); NEUTROPHILS # (AUTO) 4.5 X10'3 (1.8-7.7); NEUTROPHILS % (AUTO) 65.1 % (42-75); PLATELET COUNT 166 X10'3 (140-440); RED BLOOD COUNT 4.12 X10'6 (4.70-6.10); RED CELL DISTRIBUTION WIDTH 17.3 % (11.5-14.5); WHITE BLOOD COUNT 6.8 X10'3 (4.5-11.0)
[2024-06-21 06:20] LABS: ALANINE AMINOTRANSFERASE 17 U/L (12-78); ALBUMIN 2.9 G/DL (3.4-5.0); ALBUMIN/GLOBULIN RATIO 0.9 (1.1-1.5); ALKALINE PHOSPHATASE 114 IU/L (46-116); ANION GAP 9 (8-16); ASPARTATE AMINO TRANSFERASE 11 U/L (10-37); BILIRUBIN,TOTAL 0.5 MG/DL (0.1-1.0); BLOOD UREA NITROGEN 17 MG/DL (7-18); BUN/CREATININE RATIO 16.8 (10.0-20.0); CALCIUM 8.6 MG/DL (8.5-10.1); CHLORIDE 108 MMOL/L (99-107); CREATININE 1.01 MG/DL (0.60-1.10); GLUCOSE 94 MG/DL (70-104); MAGNESIUM 1.8 MG/DL (1.5-2.4); POTASSIUM 3.9 MMOL/L (3.5-5.1); SODIUM 141 MMOL/L (135-145); TOTAL CARBON DIOXIDE 24.2 MMOL/L (24-32); TOTAL PROTEIN 6.1 G/DL (6.4-8.2); eCRCL 50 ML/MIN; eGFR 70 ML/MIN
[2024-06-21] MEDS: clopidogrel 75mg tablet PO SCH (09:12)
--- NOTE | 2024-06-21 12:45 | RADIOLOGY REPORT ---
Indication: fall Technique: CT axial images of the lumbar spine are obtained without contrast. Coronal and sagittal r eformats were obtained. Radiation Dose Information: CTDI volume is 34 mGy. Dose-length product is 1114 mGy*cm Comparison: None FINDINGS: Lumbar vertebral body heights maintained. Moderate multilevel disc space narrowing. Alignment gross ly preserved. Prominent anterior osteophytosis. Moderate lumbar facet hypertrophic changes. Moderat e bilateral sacroiliac degenerative joint disease. Atherosclerotic calcification disease. Nonobstructing left renal calculus measuring 3 mm. Bilateral renal vascular calcifications. IMPRESSION: 1. Moderate lumbar degenerative disc disease.
--- NOTE | 2024-06-21 16:28 | PROGRESS NOTE ---
Daily Progress Note Providers to CC ~ Antibiotic Timeout Antibiotic Ordered?: No Subjective No acute events overnight. Patient examined at bedside. No new complaints, not in acute distress. Patient denies chest pain, sob, palpitations, abdominal pain, n/v/d. Orthostatic negative. Patient reports pain in buttocks but manageable and moves around freely without experiencing significant pain. Troponin negative, TTE shows normal overall systolic function with LVEF of 65-70% RVSP 17 mmHg without significant VHD. Carotid US shows no hemodynamically significant stenosis by velocity criteria. However, there is inadequate evaluation of the proximal right ICA secondary to extensive atherosclerotic plaque. CTA head/neck shows severe stenosis of right proximal ICA 95%, high-grade stenosis at right vertebral artery >90%, b/l cavernous ICA 60-80%. MRI head unremarkable. Teleneurology consulte with recommendation for vascular surgeon consult. Dr. Artis consulted. Vss, tele sinus in 50s-70s, labs unremarkable. Objective Vital Signs Date Time Temp Pulse Resp B/P (MAP) Pulse Ox O2 Delivery O2 Flow Rate FiO2 06/21/24 10:00 97.8 65 15 135/61 (85) 98 Room Air 06/21/24 08:00 0.0 Result Diagram: 06/21/24 0515 06/21/24 0515 Physical Exam General: A&Ox2, NAD HEENT: Normocephalic, PERRLA Neck: Supple, trachea midline, no JVD Chest: Clear to auscultation bilaterally Cardiovascular: RRR, S1&S2 Abdomen: Soft and nontender Extremities: No cyanosis/clubbing/or edema Central Nervous System: No focal deficits Musculoskeletal: No paraspinal muscle tenderness, no muscle spasm Skin: laceration right elbow Problem\Assessment\Plan # Syncope, unlikely # Mechanical fall # Fall, unspecified # 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 Tele sinus in 60s -carotid US shows no hemodynamically significant stenosis by velocity criteria. However, there is inadequate evaluation of the proximal right ICA secondary to extensive atherosclerotic plaque; CTA head/neck shows severe stenosis of right proximal ICA 95%, high-grade stenosis at right vertebral artery >90%, b/l cavernous ICA 60-80%. MRI head unremarkable. Teleneurology consulted. -continue high-intensity statin and home Plavix -06/21: Teleneurologist consulted yesterday, suspects mechanical fall with recommendation to consult vascular surgeon. Dr. Artis consulted. Tele sinus in 50s-70s. # Mechanical Fall # Fracture, cocyxx # Laceration, RUE -CT pelvis age indeterminate fracture of coccyx 8mm -PT eval, supportive care, fall precaution, wound care # EDWARD vs CKD- to rule out # Normocytic anemia -follow lab # NIDDM -A1c 6.2%, LDL 39; continue home statin and Plavix DVT/VTE Prophylaxis: heparin Code Status: Full code Date of Service: June 21, 2024 Billing Provider: NATALIIA RODRIGUEZ Common Visit Codes: [id number] INP/OBS CARE(HIGH) NATALIIA RODRIGUEZ June 21, 2024 16:28
--- NOTE | 2024-06-21 22:36 | PROGRESS NOTE ---
Progress Note ID Providers to CC ~ Progress Note Progress Note: pt seen-unable to communicate to hearing loss-will try again in am CHAUNCEY MATTHEWS MD June 21, 2024 22:36
[2024-06-22] VITALS (9 sets, daily range): BP systolic 122–156; BP diastolic 50–77; PULSE 56–82; RESP 14–19; TEMP 97.4–98.2; O2SAT 96–99
[2024-06-22 06:56] LABS: BASOPHILS # (AUTO) 0.1 X10'3 (0-0.2); BASOPHILS % (AUTO) 0.9 % (0-1); EOSINOPHILS # (AUTO) 0.4 X10'3 (0-0.9); EOSINOPHILS % (AUTO) 5.2 % (0-6); HEMOGLOBIN 12.8 g/dl (14.0-17.9); LYMPHOCYTES # (AUTO) 1.3 X10'3 (1.1-4.8); LYMPHOCYTES % (AUTO) 14.9 % (21-51); MEAN CORPUSCULAR HEMOGLOBIN 30.2 PG (27.0-31.0); MEAN CORPUSCULAR HGB CONC 32.9 g/dL (33.0-36.5); MEAN CORPUSCULAR VOLUME 91.6 FL (78-98); MEAN PLATELET VOLUME 9.7 FL (7.4-10.4); NEUTROPHILS # (AUTO) 5.7 X10'3 (1.8-7.7); PLATELET COUNT 172 X10'3 (140-440); RED BLOOD COUNT 4.26 X10'6 (4.70-6.10); RED CELL DISTRIBUTION WIDTH 17.2 % (11.5-14.5); WHITE BLOOD COUNT 8.5 X10'3 (4.5-11.0)
[2024-06-22 07:15] LABS: ALANINE AMINOTRANSFERASE 13 U/L (12-78); ALBUMIN/GLOBULIN RATIO 0.9 (1.1-1.5); ALKALINE PHOSPHATASE 106 IU/L (46-116); ANION GAP 9 (8-16); ASPARTATE AMINO TRANSFERASE 18 U/L (10-37); BILIRUBIN,TOTAL 0.5 MG/DL (0.1-1.0); BLOOD UREA NITROGEN 19 MG/DL (7-18); BUN/CREATININE RATIO 17.8 (10.0-20.0); CALCIUM 8.7 MG/DL (8.5-10.1); CHLORIDE 106 MMOL/L (99-107); CREATININE 1.07 MG/DL (0.60-1.10); GLUCOSE 95 MG/DL (70-104); MAGNESIUM 1.7 MG/DL (1.5-2.4); POTASSIUM 3.8 MMOL/L (3.5-5.1); SODIUM 140 MMOL/L (135-145); TOTAL CARBON DIOXIDE 24.8 MMOL/L (24-32); TOTAL PROTEIN 6.3 G/DL (6.4-8.2); eCRCL 47 ML/MIN; eGFR 65 ML/MIN
[2024-06-22] MEDS: Glycopyrrolate/Formoterol Fum (Bevespi Aerosphere Inhaler) PO SCH (08:00)
[2024-06-22] MEDS ORDERED: carvedilol 6.25mg tablet PO SCH (08:00)
[2024-06-22] MEDS ORDERED: CYANOCOBALAMIN PO SCH (08:00)
[2024-06-22] MEDS: allopurinol 300 MG tablet PO SCH (09:05)
[2024-06-22] MEDS: oxybutynin 5mg tablet PO SCH (09:07)
[2024-06-22] MEDS: losartan 50mg tablet PO SCH (09:14)
[2024-06-22] MEDS: clopidogrel 75mg tablet PO SCH (09:15)
[2024-06-22] MEDS: amLODIPine 5mg tablet PO SCH (09:15)
[2024-06-22] MEDS: carVEDilol 3.125mg tablet PO SCH (09:52)
[2024-06-22] MEDS: levoTHYROXINE 25mcg tablet PO SCH (10:37)
--- NOTE | 2024-06-22 16:42 | PROGRESS NOTE ---
Daily Progress Note Providers to CC ~ Antibiotic Timeout Antibiotic Ordered?: No Subjective No acute events overnight. Patient examined at bedside. No new complaints, not in acute distress. Patient denies chest pain, sob, palpitations, abdominal pain, n/v/d. Orthostatic negative. Patient reports pain in buttocks but manageable and moves around freely without experiencing significant pain. Troponin negative, TTE shows normal overall systolic function with LVEF of 65-70% RVSP 17 mmHg without significant VHD. Carotid US shows no hemodynamically significant stenosis by velocity criteria. However, there is inadequate evaluation of the proximal right ICA secondary to extensive atherosclerotic plaque. CTA head/neck shows severe stenosis of right proximal ICA 95%, high-grade stenosis at right vertebral artery >90%, b/l cavernous ICA 60-80%. MRI head unremarkable. Teleneurology consulted with recommendation for vascular surgeon consult. Dr. Artis consulted. Vss, tele sinus in high 50s-80s, labs unremarkable. Objective Vital Signs Date Time Temp Pulse Resp B/P (MAP) Pulse Ox O2 Delivery O2 Flow Rate FiO2 06/22/24 09:15 72 06/22/24 05:00 97.4 16 149/64 (92) 99 Room Air 06/21/24 20:00 0.0 Result Diagram: 06/22/24 0540 06/22/24 0540 Physical Exam General: A&Ox2, NAD HEENT: Normocephalic, PERRLA, [place] Neck: Supple, trachea midline, no JVD Chest: Clear to auscultation bilaterally Cardiovascular: RRR, S1&S2 Abdomen: Soft and nontender Extremities: No cyanosis/clubbing/or edema Central Nervous System: No focal deficits Musculoskeletal: No paraspinal muscle tenderness, no muscle spasm Skin: laceration right elbow Problem\Assessment\Plan # Syncope, unlikely # Mechanical fall # Fall, unspecified # 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 Tele sinus in 60s -carotid US shows no hemodynamically significant stenosis by velocity criteria. However, there is inadequate evaluation of the proximal right ICA secondary to extensive atherosclerotic plaque; CTA head/neck shows severe stenosis of right proximal ICA 95%, high-grade stenosis at right vertebral artery >90%, b/l cavernous ICA 60-80%. MRI head unremarkable. Teleneurology consulted. -continue high-intensity statin and home Plavix -06/21: Teleneurologist consulted yesterday, suspects mechanical fall with recommendation to consult vascular surgeon. Dr. Artis consulted. Tele sinus in 50s-70s. -06/22: I spoke to her POA daughter Mami, no decision should be made without discussing with her # Mechanical Fall # Fracture, cocyxx # Laceration, RUE -CT pelvis age indeterminate fracture of coccyx 8mm -PT eval, supportive care, fall precaution, wound care # EDWARD vs CKD- to rule out # Normocytic anemia -follow lab # NIDDM -A1c 6.2%, LDL 39; continue home statin and Plavix DVT/VTE Prophylaxis: heparin Code Status: Full code Date of Service: June 22, 2024 Billing Provider: NATALIIA RODRIGUEZ Common Visit Codes: [id number] INP/OBS CARE(HIGH) NATALIIA RODRIGUEZ June 22, 2024 16:42
--- NOTE | 2024-06-22 18:50 | PROGRESS NOTE ---
Progress Note ID Providers to CC ~ Progress Note Progress Note: pt seen-note dictated-pt has multiple areas of stenosis-needs followup with interventional neurology for stent placement CHAUNCEY MATTHEWS MD June 22, 2024 18:50
[2024-06-22] MEDS: Melatonin 3mg tablet PO SCH (19:50)
[2024-06-22] MEDS: Ursodiol 300mg capsule PO SCH (19:50)
[2024-06-22] MEDS: atorvastatin 20mg tablet PO SCH (20:34)
[2024-06-23 02:00] VITALS: BP 129/54; PULSE 91; RESP 18; TEMP 97.9; O2SAT 97
[2024-06-23 06:00] VITALS: BP 143/61; PULSE 59; RESP 16; TEMP 97.7; O2SAT 96
[2024-06-23 06:07] LABS: BASOPHILS # (AUTO) 0.1 X10'3 (0-0.2); BASOPHILS % (AUTO) 0.9 % (0-1); EOSINOPHILS # (AUTO) 0.4 X10'3 (0-0.9); EOSINOPHILS % (AUTO) 4.8 % (0-6); HEMATOCRIT 39.3 % (42.0-52.0); HEMOGLOBIN 12.9 g/dl (14.0-17.9); LYMPHOCYTES # (AUTO) 1.4 X10'3 (1.1-4.8); LYMPHOCYTES % (AUTO) 16.2 % (21-51); MEAN CORPUSCULAR HEMOGLOBIN 30.9 PG (27.0-31.0); MEAN CORPUSCULAR HGB CONC 32.7 g/dL (33.0-36.5); MEAN CORPUSCULAR VOLUME 94.5 FL (78-98); MEAN PLATELET VOLUME 10.2 FL (7.4-10.4); MONOCYTES # (AUTO) 1.1 X10'3 (0-0.9); MONOCYTES % (AUTO) 12.7 % (2-12); NEUTROPHILS # (AUTO) 5.6 X10'3 (1.8-7.7); NEUTROPHILS % (AUTO) 65.4 % (42-75); PLATELET COUNT 161 X10'3 (140-440); RED BLOOD COUNT 4.17 X10'6 (4.70-6.10); RED CELL DISTRIBUTION WIDTH 17.3 % (11.5-14.5); WHITE BLOOD COUNT 8.5 X10'3 (4.5-11.0)
[2024-06-23 07:02] LABS: ALANINE AMINOTRANSFERASE 22 U/L (12-78); ALBUMIN 2.8 G/DL (3.4-5.0); ALBUMIN/GLOBULIN RATIO 0.9 (1.1-1.5); ALKALINE PHOSPHATASE 98 IU/L (46-116); ANION GAP 10 (8-16); ASPARTATE AMINO TRANSFERASE 16 U/L (10-37); BILIRUBIN,TOTAL 0.4 MG/DL (0.1-1.0); BLOOD UREA NITROGEN 19 MG/DL (7-18); BUN/CREATININE RATIO 19.8 (10.0-20.0); CALCIUM 8.7 MG/DL (8.5-10.1); CHLORIDE 108 MMOL/L (99-107); CREATININE 0.96 MG/DL (0.60-1.10); GLUCOSE 99 MG/DL (70-104); MAGNESIUM 1.6 MG/DL (1.5-2.4); POTASSIUM 3.8 MMOL/L (3.5-5.1); SODIUM 142 MMOL/L (135-145); TOTAL CARBON DIOXIDE 24.2 MMOL/L (24-32); TOTAL PROTEIN 5.9 G/DL (6.4-8.2); eCRCL 52 ML/MIN; eGFR 74 ML/MIN
[2024-06-23] MEDS: allopurinol 300 MG tablet PO SCH (07:50)
[2024-06-23 07:59] VITALS: RESP 16
[2024-06-23 10:00] VITALS: BP 108/54; PULSE 56; RESP 18; TEMP 97.7; O2SAT 97
--- NOTE | 2024-06-23 19:47 | DISCHARGE SUMMARY ---
Discharge Summary Providers to CC ~ Discharge Summary Admission Diagnosis: Fall, ICA stenosis Hospital Course DATE OF ADMISSION: 06/19/24 DATE OF DISCHARGE: 06/23/24 Discharge Diagnosis\Comment: Syncope, unlikely Mechanical fall Fracture, cocyxx Gait imbalance ICA stenosis, bilateral- POA Hx CABG Hx CVA HTN Laceration, RUE EDWADR- ruled out Normocytic anemia NIDDM Operations\Procedures: None Consultants: Teleneurologist Thais Wiggins Vascular surgeon Julito Gudino Complications: None Condition on DC: Stable Continued Medications: Allopurinol (Allopurinol) 300 Mg Tablet 1 TAB PO DAILY Amlodipine Besylate (Amlodipine Besylate) 5 Mg Tablet 1 TAB PO BID Atorvastatin Calcium (Atorvastatin Calcium) 80 Mg Tablet 1 TAB PO HS Beclomethasone Dipropionate (Qvar Redihaler) 40 Mcg/Actuation Hfa.aeroba Cholecalciferol (Vitamin D3) (Vitamin D3) 25 Mcg (1000 Unit) Capsule 25 CAP PO DAILY Clopidogrel Bisulfate (Clopidogrel) 75 Mg Tablet 1 TAB PO DAILY Cyanocobalamin (Vitamin B-12) (Vitamin B12) 5,000 Mcg Tab.rapdis 1 TAB PO DAILY Docusate Sodium (Colace) 100 Mg Capsule 1 CAP PO PRN for constipation, AHFU 0 Refills Glycopyrrolate/Formoterol Fum (Bevespi Aerosphere Inhaler) 9 Mcg-4.8 Mcg Hfa.aer.ad 2 PUFFS PO BID Levothyroxine Sodium (Levothyroxine Sodium) 25 Mcg Tablet 1 TAB PO DAILY Losartan Potassium (Losartan Potassium) 100 Mg Tablet 1 TAB PO DAILY Melatonin (Melatonin) 5 Mg Tab.rapdis 1 TAB PO HS for sleep, #30 AHFU 0 Refills Oxybutynin Chloride (Oxybutynin Chloride) 5 Mg Tablet 1 TAB PO DAILY Tamsulosin Hcl* (Flomax*) 0.4 Mg Cap.sr.24h Ursodiol (Ursodiol) 300 Mg Capsule 1 CAP PO HS Discontinued Medications: Carvedilol (Carvedilol) 6.25 Mg Tablet 0.5 TAB PO BID Discharge Summary: History of Present Illness García Younger is a 89-year-old male with past medical history of CABG in 2019, COPD, hypertension, hyperlipidemia, NIDDM, CVA x3 in 2019, afib, s/p ablation who presented to the ED after a ground level fall backward striking head and right elbow today. Patient is a poor historian, hence, most history was taken from his POA daughter Elizabeth Younger. A fall was not witnessed by the daughter but patient was found on the ground immediately after a fall per daughter. Patient denies prior cardiac arrhythmia, DVT/PE, or GIB. Patient denies loss of consciousness, chest pain, palpitations, shortness of breath, abdominal pain, n/v/d. In ED, patient is in severe pain and is unable to ambulate. Patient is to be admitted for further workups, treatment, and PT evaluation. Hospital Course Diagnostic findings for notable for CT pelvis indicating fracture of coccyx and bladder distention, abnormal carotid ultrasound followed by CTA head/neck indicating severe stenosis of right proximal ICA 95%, high-grade stenosis at right vertebral artery >90%, bilateral cavernous ICA 60-80%. Pertinent negative findings were negative urinalysis, negative head CT, negative head MRI, negative CT cervical spine, negative hip/pelvis x-ray, negative orthostatic vitals. Bladder scan was done with findings of no urinary retention. Case was consulted with Teleneurologist Dr. Amador who suggested a fall likely mechanical and r ecommended continuation of Plavix and statin. Case was then consulted with vascular surgeon Dr. Artis who recommended follow-up with outpatient intervention and neurologist. Patient did not experience further complications throughout the entire hospital stay and remained clinically and hemodynamically stable. Patient was seen by physical therapy service and was cleared for discha rge to home. Patient was seen and examined on the day of discharge. On day of discharge, vss and labs unremarkable. Telemetry remained sinus in 50s-70s. All labs, diagnostic workups, discharge plan discussed with patient and also with her daughter Mami on the phone in details during visit before discharge. All questions and concerns answered to the best of my professional knowledge. Patient is to be discharged with HH and to follow-up with PCP and interventional neurologist within 2 weeks. Physical Exam General: A&Ox2, NAD HEENT: Normocephalic, PERRLA, [place] Neck: Supple, trachea midline, no JVD Chest: Clear to auscultation bilaterally Cardiovascular: RRR, S1&S2 Abdomen: Soft and nontender Extremities: No cyanosis/clubbing/or edema Central Nervous System: No focal deficits Musculoskeletal: No paraspinal muscle tenderness, no muscle spasm Skin: laceration right elbow *Problems/Diagnosis: (1) Ground-level fall Status: Acute Total Time Spent on D/C: > 30 Minutes Date of Service: June 23, 2024 Billing Provider: NATALIIA RODRIGUEZ Common Visit Codes: 18222-PMW/OBS DISCH DAY >30min NATALIIA RODRIGUEZ June 23, 2024 19:47
--- NOTE | 2024-06-24 00:26 | CONSULTATION ---
DATE OF CONSULTATION: 06/22/2024 DICTATING PHYSICIAN: Julito Artis MD REASON FOR CONSULTATION: Evaluation of abnormal CTA. HISTORY OF PRESENT ILLNESS: The patient is an 89-year-old male with a history of multiple medical problems who admitted to the ER after a ground-level fall. During the course of his workup, he was found to have extensive cerebrovascular disease based on a CTA. Surgical evaluation is now requested. On further questioning, the patient has a history of cerebrovascular disease and previous CVAs, although MRI during this admission was negative for an acute event. PAST MEDICAL HISTORY: Significant for coronary artery disease, COPD, hypertension, hyperlipidemia, diabetes, AFib. PAST SURGICAL HISTORY: Significant for CABG. HOME MEDICATIONS: Include inhalers, Colace, melatonin, supplements, Plavix, Flomax, Coreg, oxybutynin, atorvastatin, allopurinol, amlodipine, losartan, ursodiol, and levothyroxine. ALLERGIES: None. SOCIAL HISTORY: Denies tobacco use. REVIEW OF SYSTEMS: See H and P. PHYSICAL EXAMINATION: GENERAL: Well-nourished male, in minimal distress. VITAL SIGNS: Include a blood pressure 149/64, pulse 57, temperature 97. HEART: Regular rate and rhythm. LUNGS: Clear to auscultation. ABDOMEN: Benign. EXTREMITIES: Unremarkable. NEUROLOGIC: Shows no lateralizing signs. LABORATORY DATA: WBC is 8, hematocrit is 39, platelet count is 172. Chemistries, BUN and creatinine 19 and 1. IMAGING STUDIES: Carotid CTA, nondiagnostic. CT of the head and neck confirms the presence of 95% of the proximal right ICA. Extensive calcification in the cavernous ICA suggestive of 60% stenosis, left ICA stenosis between 60-80%. Right vertebral artery stenosis. 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 * Right vertebral artery stenosis. * History of AFib. * History of coronary artery disease. * History of cerebrovascular disease. * Diabetes. * Hypertension. * Hyperlipidemia. RECOMMENDATIONS: Given the tandem lesions present in the right ICA, the bifurcation as well as in the cavernous portion, the patient is best served by a stent Interventional Neurology for stent placement. Right vertebral should also be evaluated by Interventional Neurology for stent placement. Given the cavernous disease bilaterally as well as vertebral artery stenosis, he is a high risk for intraoperative EEG changes if carotid endarterectomy needs to be performed. Julito Artis MD TID: [id number] RECEIPT: [id number] CINDY/GISSEL/CLARK
== END 2024-06-23 16:30 | disposition home health service (06) | DRG 552 ==
LOC: ER 13:01 → ED HOLD 18:04 → UNDOADMIN 18:04 → ED HOLD 19:10 → ORTHO 4S 22:04
PROVIDERS: ADMIT Nurse Practitioner Family; ATTEND Nurse Practitioner Family
PROC: B3251ZZ Computerized Tomography (CT Scan) of Bilateral Common Carotid Arteries using Low Osmolar Contrast (ICD-10-PCS; principal; 2024-06-20)
PROC: B32G1ZZ Computerized Tomography (CT Scan) of Bilateral Vertebral Arteries using Low Osmolar Contrast (ICD-10-PCS; 2024-06-20)
PROC: B3281ZZ Computerized Tomography (CT Scan) of Bilateral Internal Carotid Arteries using Low Osmolar Contrast (ICD-10-PCS; 2024-06-20)
DX: S32.2XXA Fracture of coccyx, initial encounter for closed fracture (principal); S51.011A Laceration without foreign body of right elbow, initial encounter; I65.01 Occlusion and stenosis of right vertebral artery; I65.23 Occlusion and stenosis of bilateral carotid arteries; E11.9 Type 2 diabetes mellitus without complications; E78.5 Hyperlipidemia, unspecified; I48.91 Unspecified atrial fibrillation; I25.10 Atherosclerotic heart disease of native coronary artery without angina pectoris; D64.9 Anemia, unspecified; J44.9 Chronic obstructive pulmonary disease, unspecified; N32.89 Other specified disorders of bladder; Z79.84 Long term (current) use of oral hypoglycemic drugs; Z86.73 Personal history of transient ischemic attack (TIA), and cerebral infarction without residual deficits; Z95.1 Presence of aortocoronary bypass graft; Z88.8 Allergy status to other drugs, medicaments and biological substances; Z95.5 Presence of coronary angioplasty implant and graft; W18.39XA Other fall on same level, initial encounter; Y93.89 Activity, other specified; Y92.89 Other specified places as the place of occurrence of the external cause; Y99.8 Other external cause status; I12.9 Hypertensive chronic kidney disease with stage 1 through stage 4 chronic kidney disease, or unspecified chronic kidney disease; N18.9 Chronic kidney disease, unspecified
CPT/HCPCS: 36415; 70450; 70496; 70498; 70551; 72125; 72131; 72192; 73521; 80053; 80061; 81003; 82607; 83036; 83735; 84484; 85025; 87081; 93005; 93306; 93880; 96360; 96372; 97161; 97530; 99285; A6213; A6222; A6223; A6250; A6258; A6402; A6449; G0378; J1644; J7030; J7040; Q9967

== ENCOUNTER 2024-09-26 14:33 | Outpatient (CLI) | payer MEDICARE, MEDICAID ==
[~2024-09-26 14:33] MED LIST changes: +BECL10.6 INH; -CHOL100046 PO; +CHOL500049 PO; -CYAN50009 PO; -DOCU-148 PO; -LEVO25TA7 PO; -MELA5TAB12 PO; -TAMS-55; +TAMS-55 PO
--- NOTE | 2024-09-26 16:30 | VASCULAR REPORT ---
CAROTID DOPPLER ULTRASOUND HISTORY: Status post endarterectomy COMPARISON: VASC VL CAROTID on DOS: 06/20/24 TECHNIQUE: Real time collado scale, color Doppler, and spectral duplex images are obtained through the c arotid and vertebral arteries. Findings: Peak systolic velocity right internal carotid artery is 76 cm/s and right common carotid artery is 10 4 cm/s. Ratio is 0.73. Antegrade flow noted in right vertebral artery. Mild atherosclerotic plaque no lilly within the right carotid arterial system. Peak systolic velocity left internal carotid artery is 86 cm/s and left common carotid artery is 100 cm/s. Ratio is 0.86. Antegrade flow noted in left vertebral artery. Mild atherosclerotic plaque noted within the left carotid arterial system. Impression: 1. No evidence of hemodynamically significant stenosis within the bilateral carotid arterial systems. 2. Antegrade flow within bilateral vertebral arteries.
== END 2024-09-26 23:59 | disposition home or self-care (01) ==
LOC: VAS 14:33
PROVIDERS: ATTEND Surgery
DX: I65.21 Occlusion and stenosis of right carotid artery (principal)
CPT/HCPCS: 93880